=== PATIENT | female | born 1995 | race Two or more races ===

== ENCOUNTER 2025-03-01 18:59 | Emergency (ER) | payer OTHER ==
[~2025-03-01] VITALS: Ht 167.6 cm; Wt 98.6 kg
[2025-03-01 19:20] VITALS: BP 128/91; PULSE 104; RESP 16; TEMP 98.4; O2SAT 95
[2025-03-01] MEDS ORDERED: DICYCLOMINE HCL (10MG/ML) 2 ML AMPULE IM ONE (19:30)
[2025-03-01] MEDS ORDERED: SODIUM CHLORIDE 0.9% 1,000 ML IV ONE (19:30)
[2025-03-01] MEDS ORDERED: MORPHINE SULFATE 4 MG/ML SYR/VIAL IV ONE (19:30)
[2025-03-01] MEDS ORDERED: ONDANSETRON HCL 4 MG/2 ML VIAL IV ONE (19:30)
--- NOTE | 2025-03-01 19:30 | ED.PDOC ---
GI ASSESSMENT HPI Comments 29-year-old female with history of endometriosis and previous ectopic brought in by family complaining of pelvic pressure radiating to her low back described as tightness with intermittent sharp pelvic pain since around 1600 today. She denies any fever, diarrhea, constipation, dysuria, abnormal vaginal bleeding or discharge. Patient states she is on the end of her menstrual cycle at the moment, and is having mild dark red vaginal spotting. Time Seen by MD: 19:27 Reviewed Notes: Nurses Notes, Medications, Allergies Allergies: Coded Allergies: NO KNOWN ALLERGIES (Unverified , 03/01/25) Home Meds Active Scripts Acetaminophen (Tylenol Extra Strength) 500 Mg Tab, 1000 MG PO Q6HP PRN, #30 TAB Prov:GINETTE RAGLAND MD 03/01/25 Information Source: Patient Mode of Arrival: Ambulatory Timing: Hours Duration: Since onset Prehospital treatment: None Quality: None Vomitus: None Stool: Normal Severity: Moderate Recent: None Recent Hx of: None Pain Location: Suprapubic Modifying Factors: Nothing Associated sign and symptoms: None Past Medical History Past Medical History (Other): ENDOMETRIOSIS Surgical History: SURGEON CHIEF History: Ectopic , Endometriosis Family History Family History: Reviewed,noncontributory to illness Social History Smoker: Non-Smoker Alcohol: Denies ETOH Use Drugs: Denies Drug Use Lives In: Home Constitutional: denies: chills, diaphoresis, fatigue, fever, malaise, sweats, weakness, others EENTM: denies: blurred vision, double vision, ear bleeding, ear discharge, ear drainage, ear pain, ear ringing, eye pain, eye redness, hearing loss, mouth pain, mouth swelling, nasal discharge, nose bleeding, nose congestion, nose pain, photophobia, tearing, throat pain, throat swelling, voice changes, others Respiratory: denies: cough, hemoptysis, orthopnea, SOB at rest, shortness of breath, SOB with excertion, stridor, wheezing, others Cardiovascular: denies: chest pain, dizzy spells, diaphoresis, Dyspnea on exertion, edema, irregular heart beat, left arm pain, lightheadedness, palpitations, PND, syncope, others Gastrointestinal: reports: abdominal pain; denies: abdomen distended, blood streaked bowels, constipated, diarrhea, dysphagia, difficulty swallowing, hematemesis, melena, nausea, poor appetite, poor fluid intake, rectal bleeding, rectal pain, vomiting, others Genitourinary: denies: abnormal vagina bleeding, burning, dyspareunia, dysuria, flank pain, frequency, hematuria, incontinence, pain, , vagina discharge, urgency, others Neurological: reports: others (LIGHTHEADEDNESS); denies: dizziness, fainting, headache, left sided numbness, left sided weakness, numbness, paresthesia, pre- existing deficit, right sided numbness, right sided weakness, seizure, speech problems, tingling, tremors, weakness Musculoskeletal: denies: back pain, gout, joint pain, joint swelling, muscle pain, muscle stiffness, neck pain, others Integumetry: denies: bruises, change in color, change in hair/nails, dryness, laceration, lesions, lumps, rash, wounds, others Allergic/Immunocompromised: denies: Difficulty Healing, Frequent Infections, Hives, Itching, others Hematologic/Lymphatic: denies: anemia, blood clots, easy bleeding, easy bruising, swollen glands, others Endocrine: denies: excessive hunger, excessive sweating, excessive thirst, excessive urination, flushing, intolerance to cold, intolerance to heat, unexplained weight gain, unexplained weight loss, others Psychiatric: denies: anxiety, bipolar disorder, depression, hopeless, panic disorder, schizophrenia, sleepless, suicidal, others All Other Systems: Reviewed and Negative Physical Exam General Appearance: No Apparent Distress, Obese HEENT: Other (Pupils and face symmetric. Moist mucous membranes.) Neck: Full Range of Motion, Normal Inspection Respiratory: Lungs Clear, No Accessory Muscle Use, No Respiratory Distress, Normal Breath Sounds Cardiovascular: No Edema, No JVD, Regular Rate/Rhythm Breast Exam: Deferred Gastrointestinal: Soft, Suprapubic, Tenderness (Mild) Genitalia: Deferred Pelvic: Deferred Rectal: Deferred Extremities: Normal inspection, Normal range of motion, Non-tender, No pedal edema Neurologic: Alert (Oriented x4), Normal Affect, Normal Mood, Other (Ambulatory without difficulty. ) Cerebellar Function: NOT DONE Reflexes: NOT DONE Skin: Dry, Normal Color, Warm Lymphatic: NOT DONE Was a procedure done? Was a procedure done?: No GI differential Dx Differential Diagnosis: Ectopic , Gastroenteritis, Inflammatory BD, Ovarian cyst/torsion, PID, UTI, , Bacterial, Viral, Impaction, Kidney Stone X-Ray, Labs, Meds, VS Vital Signs Date Time Temp Pulse Resp B/P (MAP) Pulse Ox O2 Delivery O2 Flow Rate FiO2 03/01/25 19:20 98.4 104 16 128/91 (103) 95 98.4 Lab Test 03/01/25 19:38 03/01/25 19:25 Range/Units White Blood Count 9.8 4.4-10.8 10^3/uL Red Blood Count 4.75 4.0-5.20 10^6/uL Hemoglobin 14.5 12.2-16.2 g/dL Hematocrit 43.2 36.0-46.0 % Mean Corpuscular Volume 90.9 80.0-100.0 fL Mean Corpuscular Hemoglobin 30.4 28.0-32.0 pg Mean Corpuscular Hemoglobin Concent 33.5 32.0-36.0 g/dL Red Cell Distribution Width 13.6 11.8-14.3 % Platelet Count 289 140-450 10^3/uL Mean Platelet Volume 10.1 6.9-10.8 fL Neutrophils (%) (Auto) 65.7 37.0-80.0 % Lymphocytes (%) (Auto) 27.4 10.0-50.0 % Monocytes (%) (Auto) 6.0 0.0-12.0 % Eosinophils (%) (Auto) 0.4 0.0-7.0 % Basophils (%) (Auto) 0.5 0.0-2.0 % Neutrophils # (Auto) 6.4 1.6-8.6 10 ^3/uL Lymphocytes # (Auto) 2.7 0.4-5.4 10 ^3/uL Monocytes # (Auto) 0.6 0-1.3 10 ^3/uL Eosinophils # (Auto) 0 0-0.8 10 ^3/uL Basophils # (Auto) 0 0-0.2 10 ^3/uL Nucleated Red Blood Cells 0.0 % Sodium Level 140 136-145 mmol/L Potassium Level 3.6 3.5-5.1 mmol/L Chloride Level 105 98-107 mmol/L Carbon Dioxide Level 24 20-31 mmol/L Anion Gap 11 5-15 Blood Urea Nitrogen 10 9-23 mg/dL Creatinine 0.81 0.550-1.02 mg/dL Glomerular Filtration Rate Calc 101 >90 mL/min BUN/Creatinine Ratio 12.3 10.0-20.0 Serum Glucose 96 74-106 mg/dL Calcium Level 10.2 8.7-10.4 mg/dL Total Bilirubin 0.6 0.2-1.0 mg/dL Aspartate Amino Transferase (AST) 11 L 13-40 U/L Alanine Aminotransferase (ALT) 23 7-40 U/L Alkaline Phosphatase 76 46-116 U/L Total Protein 8.1 5.7-8.2 g/dL Albumin 5.2 H 3.2-4.8 g/dL Beta HCG, Quantitative 19.5 H 1.5-4.2 mIU/mL Urine Color Yellow Yellow Urine Clarity Clear Clear Urine pH 5.5 5.0-9.0 Urine Specific [place] 1.020 1.001-1.035 Urine Protein Negative Negative Urine Ketones 2+ H Negative Urine Blood Negative Negative /uL Urine Nitrite Negative Negative Urine Bilirubin Negative Negative Urine Urobilinogen Normal Negative mg/dL Urine Leukocyte Esterase Negative Negative /uL Urine RBC <1 0 - 4 /hpf Urine Microscopic WBC 1 0-5 /HPF Urine Squamous Epithelial Cells Few <5 /hpf Urine Bacteria None seen None Seen /hpf Urine Mucus Few None Seen Urine Glucose Normal Normal mg/dL PROCEDURE(s): PELUS - PELVIC REASON: pelvic pain, h/o endometriosis ORDER NUMBER(s): [id number], ACCESSION NUMBER(s): [id number] STUDY: Transabdominal and Transvaginal Pelvic Ultrasound. Indication: pelvic pain, h/o endometriosis COMPARISON: None FINDINGS: The uterus measures 5.8 cm. Subserosal hypoechoic lesion measuring 2.9 cm consistent with leiomyoma. The endometrial stripe measures 5 mm. The right ovary measures 2.9 x 3 x 1.1 cm. The left ovary measures 2.3 x 2.9 x 1.5 cm . Bilateral ovarian Doppler flow is identified. There is a small amount of free pelvic fluid. IMPRESSION: 1. Subserosal hypoechoic lesion measuring 2.8 cm, consistent with leiomyoma. This can be further evaluated with pelvic ultrasound as clinically warranted. 2. Small amount of free pelvic fluid. EDURE(s): OB4US - OB ULTRASOUND COMP LESS 14WKS REASON: PAIN BETA 19.5 ORDER NUMBER(s): [id number], ACCESSION NUMBER(s): [id number] OB ULTRASOUND <14 WEEKS: HISTORY: PAIN BETA 19.5 TECHNIQUE: Multiple real-time grayscale sonographic images of the pelvis with duplex Doppler color flow, spectral and M-mode analysis. TRANSDUCERS: Transabdominal FINDINGS: The uterus measures 5.8 x 3.8 x 4.6 cm. Endometrium measures 5 mm. Is a 2.77 by 2.93 x 2.26 cm intramural fibroid in the fundus of the uterus. The cervix measures Right ovary measures 2.9 x 3 x 1.1 cm with normal Doppler color flow. 2.7 x 2.9 x 2.3 cm mass in the right ovary. Left ovary measures 2.3 x 2.9 x 1.5 cm with normal Doppler color flow IMPRESSION: 1. 2.77 x 2.93 x 2.26 cm intramural fibroid in the fundus of the uterus. 2. Endometrium measures 5 mm X-Ray, Labs, Meds, VS Comment 29-year-old female with a history of previous ectopic and endometriosis complaining of pelvic pressure radiating to her lower back Vitals remarkable for heart rate 104, blood pressure 128/91 Exam remarkable for suprapubic mild tenderness to palpation. Nontender to percussion. No rebound or guarding. Rhythm strip independently interpreted by me: Sinus tach, rate 104, no ectopy. Pelvic ultrasound: IMPRESSION: 1. Subserosal hypoechoic lesion measuring 2.8 cm, consistent with leiomyoma. This can be further evaluated with pelvic ultrasound as clinically warranted. 2. Small amount of free pelvic fluid. OB ultrasound: CBC and CMP unremarkable, UA positive for ketones, otherwise unremarkable, hCG 19.5 Following was ordered for the patient: 1L 0.9 normal saline IV bolus, morphine 4 mg IV, Zofran 4 mg IV, however as of 2229, the patient is still was awaiting medications. On re-evaluation, patient states pain has improved, and she would rather be discharged then await medications. Vitals were stable. P.o. Tylenol 1 g and Zofran ODT were ordered instead of the IV medications. Differential includes normal early or ectopic . Based on serum quantitative hCG and ultrasound results, patient advised to return to ER or follow-up with her OBGYN in 2-3 days for repeat serum quantitative hCG and ultrasound. Alternatively, the patient may follow-up directly with Dr. Nieves. Rx Tylenol Time of 1ST Reevaluation: 19:57 Reevaluation 1ST: Unchanged Time of 2ND Reevaluation: 20:58 Reevaluation 2ND: Improved Patient Education/Counseling: Diagnosis, Treatment Family Education/Counseling: No Family Present Departure 1 Departure Time of Disposition: 20:58 Impression: Primary Impression: Early stage of Disposition: 01 HOME / SELF CARE / HOMELESS Condition: Stable Referrals: ANJELICA NIEVES DO Additional Instructions: Your blood tests were unremarkable except for the blood test for , which was positive. Your pelvic ultrasound showed a uterine fibroid, but was otherwise unremarkable. Your Ob ultrasound did not show an intrauterine or evidence of an ectopic at this time. Return to ER or follow-up with your OBGYN in 2-3 days for repeat serum quantitative hCG and repeat ultrasound. Alternatively, follow-up directly with Dr. Nieves. Call for appointment. [place] [id number] Ph: [phone] DIAGNOSTIC IMAGING Diagnostic Imaging Report : [id number] Signed PATIENT: JAS PEDERSEN ACCT: [id number] UNIT: [id number] : 1995 LOC: ER ROOM / BED: / AGE / SEX: 29 / F ADM STATUS: REG ER SERVICE 0000 ORDERING PHYSICIAN: GINETTE RAGLAND MD PROCEDURE(s): OB4US - OB ULTRASOUND COMP LESS 14WKS REASON: PAIN BETA 19.5 ORDER NUMBER(s): [id number], ACCESSION NUMBER(s): [id number] OB ULTRASOUND <14 WEEKS: HISTORY: PAIN BETA 19.5 TECHNIQUE: Multiple real-time grayscale sonographic images of the pelvis with duplex Doppler color flow, spectral and M-mode analysis. TRANSDUCERS: Transabdominal FINDINGS: The uterus measures 5.8 x 3.8 x 4.6 cm. Endometrium measures 5 mm. Is a 2.77 by 2.93 x 2.26 cm intramural fibroid in the fundus of the uterus. The cervix measures Right ovary measures 2.9 x 3 x 1.1 cm with normal Doppler color flow. 2.7 x 2.9 x 2.3 cm mass in the right ovary. Left ovary measures 2.3 x 2.9 x 1.5 cm with normal Doppler color flow IMPRESSION: 1. 2.77 x 2.93 x 2.26 cm intramural fibroid in the fundus of the uterus. 2. Endometrium measures 5 mm e-Prescriptions Acetaminophen (Tylenol Extra Strength) 500 Mg Tab 1000 MG PO Q6HP PRN, #30 TAB Prov: GINETTE RAGLAND MD 03/01/25 Discharged With: Relative Critical Care Note Critical Care Time?: No Stability Stability form required: No Heart Score Heart Score: Heart Score Response (Comments) Value History N/A 0 EKG N/A 0 Age N/A 0 Risk Factors N/A 0 Troponin N/A 0 Total 0 I personally scribed for GINETTE RAGLAND MD ([email or web address]) on 03/01/25 at 19:30. Electronically submitted by Ariadna Lopez ([email or web address]). I personally scribed for GINETTE RAGLAND MD ([email or web address]) on 03/01/25 at 21:46. Electronically submitted by Ariadna Lopez ([email or web address]). GINETTE RAGLAND MD Mar 01, 2025 19:30
[2025-03-01 19:47] LABS: Urine Bacteria None Seen /hpf (None Seen)
[2025-03-01 19:51] LABS: Basophils # (auto) 0 10 ^3/uL (0-0.2); Basophils % (auto) 0.5 % (0.0-2.0); Eosinophils # (auto) 0 10 ^3/uL (0-0.8); Eosinophils % (auto) 0.4 % (0.0-7.0); Hematocrit 43.2 % (36.0-46.0); Hemoglobin 14.5 g/dL (12.2-16.2); Lymphocytes # (auto) 2.7 10 ^3/uL (0.4-5.4); Lymphocytes % (auto) 27.4 % (10.0-50.0); Mean Corpuscular Hemoglobin 30.4 pg (28.0-32.0); Mean Corpuscular Hgb Conc. 33.5 g/dL (32.0-36.0); Mean Corpuscular Volume 90.9 fL (80.0-100.0); Monocytes # (auto) 0.6 10 ^3/uL (0-1.3); Neutrophils # (auto) 6.4 10 ^3/uL (1.6-8.6); Neutrophils % (auto) 65.7 % (37.0-80.0); Platelet Count (auto) 289 10^3/uL (140-450); Red Blood Cells 4.75 10^6/uL (4.0-5.20); Red Cell Distribution Width 13.6 % (11.8-14.3); White Blood Cell 9.8 10^3/uL (4.4-10.8)
[2025-03-01 19:52] LABS: Urine Blood Negative /uL (Negative); Urine Clarity Clear (Clear); Urine Color Yellow (Yellow); Urine Mucus FEW (None Seen); Urine Protein, UAD Negative (Negative); Urine Squamous Epithelial Cell FEW /hpf (<5); Urine Urobilinogen Normal (Negative); Urine WBC 1 /HPF (0-5); Urine pH 5.5 (5.0-9.0)
[2025-03-01 20:20] LABS: Alanine Aminotransferase 23 U/L (7-40); Albumin 5.2 g/dL (3.2-4.8); Alkaline Phosphatase 76 U/L (46-116); Anion Gap 11 (5-15); Aspartate Aminotransferase 11 U/L (13-40); BUN/Creatinine Ratio 12.3 (10.0-20.0); Bilirubin, Total 0.6 mg/dL (0.2-1.0); Blood Urea Nitrogen 10 mg/dL (9-23); Calcium 10.2 mg/dL (8.7-10.4); Carbon Dioxide 24 mmol/L (20-31); Chloride 105 mmol/L (98-107); Glucose 96 mg/dL (74-106); Potassium 3.6 mmol/L (3.5-5.1); Sodium 140 mmol/L (136-145); Total Protein 8.1 g/dL (5.7-8.2)
--- NOTE | 2025-03-01 20:38 | DVH ---
STUDY: Transabdominal and Transvaginal Pelvic Ultrasound. Indication: pelvic pain, h/o endometriosis COMPARISON: None FINDINGS: The uterus measures 5.8 cm. Subserosal hypoechoic lesion measuring 2.9 cm consistent with l eiomyoma. The endometrial stripe measures 5 mm. The right ovary measures 2.9 x 3 x 1.1 cm. The left ovary measures 2.3 x 2.9 x 1.5 cm . Bilateral ovarian Doppler flow is identified. There is a small amount of free pelvic fluid. IMPRESSION: 1. Subserosal hypoechoic lesion measuring 2.8 cm, consistent with leiomyoma. This can be further eval uated with pelvic ultrasound as clinically warranted. 2. Small amount of free pelvic fluid.
--- NOTE | 2025-03-01 20:53 | DVH ---
OB ULTRASOUND <14 WEEKS: HISTORY: PAIN BETA 19.5 TECHNIQUE: Multiple real-time grayscale sonographic images of the pelvis with duplex Doppler color f low, spectral and M-mode analysis. TRANSDUCERS: Transabdominal FINDINGS: The uterus measures 5.8 x 3.8 x 4.6 cm. Endometrium measures 5 mm. Is a 2.77 by 2.93 x 2.26 cm intra mural fibroid in the fundus of the uterus. The cervix measures Right ovary measures 2.9 x 3 x 1.1 cm with normal Doppler color flow. 2.7 x 2.9 x 2.3 cm mass in the right ovary. Left ovary measures 2.3 x 2.9 x 1.5 cm with normal Doppler color flow IMPRESSION: 1. 2.77 x 2.93 x 2.26 cm intramural fibroid in the fundus of the uterus. 2. Endometrium measures 5 mm
[2025-03-01] MEDS ORDERED: ACET-1304 PO (21:02)
[2025-03-01] MEDS ORDERED: ACETAMINOPHEN 500 MG TAB or CAP PO ONE (22:30)
[2025-03-01] MEDS ORDERED: ONDANSETRON ODT 4 MG TAB PO ONE (22:30)
== END 2025-03-02 01:47 | disposition home or self-care (01) ==
LOC: ER 19:04
DX: O20.8 Other hemorrhage in early pregnancy (principal); D25.1 Intramural leiomyoma of uterus; N83.9 Noninflammatory disorder of ovary, fallopian tube and broad ligament, unspecified; Z98.890 Other specified postprocedural states; Z3A.01 Less than 8 weeks gestation of pregnancy
CPT/HCPCS: 36415; 76801; 76856; 80053; 81001; 84702; 85025

== ENCOUNTER 2025-08-29 12:16 | Outpatient (CLI) | payer OTHER ==
[~2025-08-29 12:16] MED LIST: ACET-1304 PO
[2025-08-30 08:41] LABS: Urine Budding Yeast MANY /hpf (None Seen); Urine Protein, UAD Negative (Negative); Urine WBC Clumps PRESENT /hpf (None Seen)
== END 2025-08-29 17:00 | disposition home or self-care (01) ==
LOC: LAB 12:16
PROVIDERS: ATTEND Nurse Practitioner Family
DX: N89.8 Other specified noninflammatory disorders of vagina (principal); L29.2 Pruritus vulvae; R30.9 Painful micturition, unspecified
CPT/HCPCS: 81001; 87086

== ENCOUNTER 2025-09-05 06:50 | Outpatient (CLI) | payer OTHER | END 2025-09-05 17:00 | disposition home or self-care (01) | LOC: LAB 06:50 | PROVIDERS: ATTEND Anesthesiology | DX: L66.3 Perifolliculitis capitis abscedens (principal) | CPT/HCPCS: 87070; 87077; 87186 ==